=== PATIENT | female | born 1975 | race Caucasian/White ===

== ENCOUNTER 2018-03-14 16:22 | Emergency (ER) | payer OTHER ==
[2018-03-14] MEDS ORDERED: EPINEPHrine 1 MG/ML INJ ONE (16:27)
[2018-03-14] MEDS ORDERED: RANITIDINE 50 MG/2 ML VIAL IVP ONE (16:28)
[2018-03-14] MEDS ORDERED: methylPREDNISolone SOD SUCC 125 MG/2 ML VIAL IVP ONE (16:28)
[2018-03-14] MEDS ORDERED: EPINEPHrine 1 MG/ML INJ IM ONE (16:28)
--- NOTE | 2018-03-14 16:31 | EDPHY ---
H & P Stated Complaint: wasp sting Time Seen by Provider: 03/14/18 16:25 HPI/ROS: CHIEF COMPLAINT: Allergic reaction HISTORY OF PRESENT ILLNESS: 42-year-old female presents with an allergic reaction. She was stung by a wasp 20 min prior to arrival. On EMS arrival she had generalized hives. Benadryl 50 mg IV given. She also has a raspy and sore throat, but denies shortness of breath. No dizziness. No prior history of anaphylaxis. REVIEW OF SYSTEMS: complete 10 point ROS negative except at noted in the HPI - Medical/Surgical History Hx Asthma: No Hx Chronic Respiratory Disease: No Hx Diabetes: No Hx Cardiac Disease: No Hx Renal Disease: No Hx Cirrhosis: No Hx Alcoholism: No Hx HIV/AIDS: No Hx Splenectomy or Spleen Trauma: No Other PMH: Denies pmh or psh - Social History Smoking Status: Never smoked Alcohol Use: Occasionally - Physical Exam Exam: General Appearance: Alert, pleasant Eyes: Pupils equal and round, no periorbital swelling ENT, Mouth: Mucous membranes moist, mild pharyngeal erythema without swelling, no other oral swelling Neck: Normal inspection, no stridor Respiratory: Lungs are clear to auscultation, no wheezing Cardiovascular: Regular rate and rhythm Neurological: A&O, nonfocal, normal gait Skin: Generalized hives Extremities: No swelling Psychiatric: Mood and affect normal Constitutional: Initial Vital Signs Temperature (C) 36.8 C 03/14/18 16:24 Heart Rate 77 03/14/18 16:24 Respiratory Rate 18 03/14/18 16:24 Blood Pressure 125/83 H 03/14/18 16:24 O2 Sat (%) 99 03/14/18 16:24 O2 Delivery Mode Room Air Allergies/Adverse Reactions: No Known Allergies Allergy (Verified 03/14/18 16:24) Home Medications: Medication Instructions Recorded EPINEPHrine [Epipen 0.3 MG] 0.3 mg IM ONCE #2 syr 03/14/18 predniSONE 60 mg PO DAILY #9 tab 03/14/18 Medical Decision Making ED Course/Re-evaluation: This patient presents with anaphylaxis. Epinephrine 0.3 mg IM given, followed by Solu-Medrol and ranitidine IV. 1700: feels better. 1800: feels much better, wants to go home. Few scattered hives present, throat symptoms have resolved. Safe and stable for discharge home. Anaphylaxis instructions given by me. Differential Diagnosis: Differential diagnosis includes though it is not limited to laryngeal edema, bronchospasm, hypotension, angioedema. - Data Points Medications Given: Discontinued Medications Epinephrine HCl (Epinephrine) 0.3 mg IM EDNOW ONE Stop: 03/14/18 16:29 Last Admin: 03/14/18 16:33 Dose: 0.3 mg Methylprednisolone Sodium Succinate (Solu-Medrol) 125 mg IVP EDNOW ONE Stop: 03/14/18 16:29 Last Admin: 03/14/18 16:33 Dose: 125 mg Ondansetron HCl (Zofran Odt) 4 mg PO EDNOW ONE Stop: 03/14/18 16:36 Last Admin: 03/14/18 16:36 Dose: 4 mg Ranitidine HCl (Zantac) 50 mg IVP EDNOW ONE Stop: 03/14/18 16:29 Last Admin: 03/14/18 16:33 Dose: 50 mg Departure - Departure Disposition: Home, Routine, Self-Care Clinical Impression: Acute anaphylaxis Qualifiers: Encounter type: initial encounter Qualified Code(s): T78.2XXA - Anaphylactic shock, unspecified, initial encounter Condition: Good Instructions: Anaphylaxis (ED) Additional Instructions: Take Claritin in the morning and Benadryl at night for 3 days. Referrals: Anahi Encinas DO [Doctor of Osteopathy] - As per Instructions Prescriptions: EPINEPHrine [Epipen 0.3 MG] 0.3 mg IM ONCE #2 syr predniSONE 60 mg PO DAILY #9 tab
[2018-03-14] MEDS ORDERED: ONDANSETRON DISINTEGRATING 4 MG TAB ONE (16:32)
[2018-03-14] MEDS ORDERED: ONDANSETRON DISINTEGRATING 4 MG TAB PO ONE (16:35)
[2018-03-14 18:12] VITALS: BP 124/73
== END 2018-03-14 18:19 | disposition home or self-care (01) ==
LOC: EDUNIT#
DX: T78.2XXA Anaphylactic shock, unspecified, initial encounter (principal)
CPT/HCPCS: 96374; J0171; J2780; J2930

== ENCOUNTER 2018-03-16 01:00 | Emergency (ER) | payer OTHER ==
[2018-03-16] MEDS ORDERED: NS 1,000 ML IV ONE (01:10)
[2018-03-16] MEDS ORDERED: LORazepam 2 MG/ML INJ IVP ONE (01:11)
[2018-03-16] MEDS ORDERED: DEXAMETHASONE 10 MG/ML VIAL IVP ONE (01:11)
[2018-03-16] MEDS ORDERED: FAMOTIDINE 20 MG/2 ML SDV IVP ONE (01:11)
--- NOTE | 2018-03-16 01:15 | EDPHY ---
H & P Time Seen by Provider: 03/16/18 01:12 HPI/ROS: HPI CHIEF COMPLAINT: Allergic reaction. HISTORY OF PRESENT ILLNESS: Is very pleasant 42-year-old female, denies any significant medical history, was here yesterday after she was stung by a wasp and had allergic reaction comma in the emergency room she received steroids, Benadryl, and epinephrine pen. This was approximately at 3 o'clock in the afternoon yesterday over 24 hr ago. It is now 1:00 a.m.. She states around 730 this evening she developed a rash and itching and urticaria. She took some Benadryl however this did not really improve her symptoms. She presents emergency room with increasing rash redness on her chest and urticaria on her arms. She denies any trouble breathing. She is anxious. She has been compliant with her medication regimen at home including prednisone, Claritin and Benadryl. She presents with no trouble breathing or no trouble swallowing. However does have pruritus and rash. Medical history: Denies Past Surgical History: Denies recent surgery Social History: Denies drugs alcohol tobacco Family History: Noncontributory. ROS REVIEW OF SYSTEMS: A comprehensive 10 point review of systems is otherwise negative aside from elements mentioned in the history of present illness. Exam Constitutional: appears well nontoxic no acute distress, triage nursing summary reviewed, vital signs reviewed, awake/alert. Eyes normal conjunctivae and sclera, EOMI, PERRLA. HENT posterior pharynx unremarkable no swelling normal inspection, atraumatic, moist mucus membranes, no epistaxis, neck supple/ no meningismus, no raccoon eyes. Respiratory no stridor, no wheezing, no respiratory complaints clear to auscultation bilaterally, normal breath sounds, no respiratory distress, no wheezing. Cardiovascular rate normal, regular rhythm, no murmur, no edema, distal pulses normal. Gastrointestinal soft, non-tender, no rebound, no guarding, normal bowel sounds, no distension, no pulsatile mass. Genitourinary no CVA tenderness. Musculoskeletal no midline vertebral tenderness, full range of motion, no calf swelling, no tenderness of extremities, no meningismus, good pulses, neurovascularly intact. Skin shows some erythema on the chest wall, urticaria bilateral arms. Neurologic awake, alert and oriented x 3, AAOx3, moves all 4 extremities equally, motor intact, sensory intact, CN II-XII intact, normal cerebellar, normal vision, normal speech. Psychiatric normal mood/affect. Heme/Lymph/Immune no lymphadenopathy. Differential Diagnosis: Includes but is not limited to in a particular order allergic reaction, delayed allergic reaction, anaphylaxis, severe allergy. Medical Decision Making: Plan for this patient IV establishment full cardiac catheterization technologist IV fluid bolus, IV Benadryl, IV Pepcid, IV Decadron. Re-evaluation: 0347: Patient has been monitored here closely for over 3 hr. There has been no progression of allergic reaction the patient is requesting go home. As for urticaria down her arms is greatly improved. The redness on her chest this improved. No progression of allergic reaction. No respiratory symptoms no trouble swallowing. No worsening rash. None she does have prednisone, Benadryl, Claritin home. I do recommend she continues to take this. I will prescribe her 1 more day prednisone. I do additionally recommend she follows up with an forest nursery worker on outpatient testing for allergy testing Unclear if the allergic reaction was rebound allergic reaction from over 24 hr from a wasp sting or some new innocuous. Return precautions discussed with her she understands return emergency room she develops worsening shortness of breath, rash, allergic reaction. Patient does have an epinephrine pen x2 with her. She understands have a use these. If return if severe allergic reaction return emergency room if worsening symptoms questions or concerns. Source: Patient, EMS - Medical/Surgical History Hx Asthma: No Hx Chronic Respiratory Disease: No Hx Diabetes: No Hx Cardiac Disease: No Hx Renal Disease: No Hx Cirrhosis: No Hx Alcoholism: No Hx HIV/AIDS: No Hx Splenectomy or Spleen Trauma: No Other PMH: Denies pmh or psh - Social History Smoking Status: Never smoked Constitutional: Initial Vital Signs Temperature (C) 37.2 C 03/16/18 01:11 Heart Rate 63 03/16/18 01:11 Respiratory Rate 16 03/16/18 01:11 Blood Pressure 142/87 H 03/16/18 01:11 O2 Sat (%) 96 03/16/18 01:11 O2 Delivery Mode Room Air Allergies/Adverse Reactions: No Known Allergies Allergy (Verified 03/16/18 01:11) Home Medications: Medication Instructions Recorded EPINEPHrine [Epipen 0.3 MG] 0.3 mg IM ONCE #2 syr 03/14/18 predniSONE 60 mg PO DAILY #9 tab 03/14/18 predniSONE 60 mg PO DAILY #3 tab 03/16/18 Medical Decision Making - Data Points Laboratory Results: Laboratory Results 03/16/18 01:20 03/16/18 01:20 03/16/18 03/16/18 01:20 01:20 WBC 14.33 10^3/uL H 10^3/uL (3.80-9.50) RBC 4.45 10^6/uL 10^6/uL (4.18-5.33) Hgb 13.4 g/dL g/dL (12.6-16.3) Hct 39.4 % % (38.0-47.0) MCV 88.5 fL fL (81.5-99.8) MCH 30.1 pg pg (27.9-34.1) MCHC 34.0 g/dL g/dL (32.4-36.7) RDW 12.7 % % (11.5-15.2) Plt Count 239 10^3/uL 10^3/uL (150-400) MPV 10.9 fL fL (8.7-11.7) Neut % (Auto) 84.8 % H % (39.3-74.2) Lymph % (Auto) 10.2 % L % (15.0-45.0) [place] % (Auto) 4.5 % % (4.5-13.0) Eos % (Auto) 0.1 % L % (0.6-7.6) Baso % (Auto) 0.1 % L % (0.3-1.7) Nucleat RBC Rel Count 0.0 % % (0.0-0.2) Absolute Neuts (auto) 12.15 10^3/uL H 10^3/uL (1.70-6.50) Absolute Lymphs (auto) 1.46 10^3/uL 10^3/uL (1.00-3.00) Absolute Monos (auto) 0.64 10^3/uL 10^3/uL (0.30-0.80) Absolute Eos (auto) 0.01 10^3/uL L 10^3/uL (0.03-0.40) Absolute Basos (auto) 0.02 10^3/uL 10^3/uL (0.02-0.10) Absolute Nucleated RBC 0.00 10^3/uL 10^3/uL (0-0.01) Immature Gran % 0.3 % % (0.0-1.1) Immature Gran # 0.05 10^3/uL 10^3/uL (0.00-0.10) Sodium 138 mEq/L mEq/L (135-145) Potassium 3.9 mEq/L mEq/L (3.3-5.0) Chloride 103 mEq/L mEq/L (97-110) Carbon Dioxide 25 mEq/l mEq/l (22-31) Anion Gap 10 mEq/L mEq/L (8-16) BUN 15 mg/dL mg/dL (7-23) Creatinine 0.7 mg/dL mg/dL (0.6-1.0) Estimated GFR > 60 Glucose 139 mg/dL H mg/dL (70-100) Calcium 9.5 mg/dL mg/dL (8.5-10.4) Medications Given: Discontinued Medications Dexamethasone (Decadron Injection) 10 mg IVP EDNOW ONE Stop: 03/16/18 01:12 Last Admin: 03/16/18 01:29 Dose: 10 mg Diphenhydramine HCl (Benadryl Injection) 25 mg IVP EDNOW ONE Stop: 03/16/18 01:12 Last Admin: 03/16/18 01:28 Dose: 25 mg Famotidine (Pepcid) 20 mg IVP EDNOW ONE Stop: 03/16/18 01:12 Last Admin: 03/16/18 01:28 Dose: 20 mg Sodium Chloride (Ns) 1,000 mls @ 0 mls/hr IV EDNOW ONE; Wide Open PRN Reason: Protocol Stop: 03/16/18 01:11 Last Admin: 03/16/18 01:19 Dose: 1,000 mls Lorazepam (Ativan Injection) 0.5 mg IVP EDNOW ONE Stop: 03/16/18 01:12 Last Admin: 03/16/18 01:29 Dose: 0.5 mg Departure - Departure Disposition: Home, Routine, Self-Care Clinical Impression: Allergic reaction Qualifiers: Encounter type: initial encounter Qualified Code(s): T78.40XA - Allergy, unspecified, initial encounter Condition: Good Instructions: Urticaria (ED), Allergies (ED) Additional Instructions: 1. Return to the emergency room if you have any worsening symptoms questions or concerns 2. Prednisone for an additional day 3. Follow up with an forest nursery worker. Referrals: Patient,NotPresent [Unknown] - As per Instructions Prescriptions: predniSONE 60 mg PO DAILY #3 tab
[2018-03-16 01:30] LABS: PLATELET COUNT 239 10^3/uL (150-400)
[2018-03-16 03:22] VITALS: BP 116/84
== END 2018-03-16 03:57 | disposition home or self-care (01) ==
LOC: EDUNIT#
DX: T78.40XA Allergy, unspecified, initial encounter (principal); E86.9 Volume depletion, unspecified
CPT/HCPCS: 96374; J1100; J1200; J2060